=== PATIENT | female | born 1990 | race Caucasian/White ===

== ENCOUNTER 2018-01-27 19:58 | Emergency (ER) | payer BC ==
[2018-01-27] MEDS ORDERED: ONDANSETRON 4 MG/2 ML VIAL IVP ONE (21:48)
[2018-01-27] MEDS ORDERED: PROPOFOL 200 MG/20 ML VIAL IVP ONE (21:55)
[2018-01-27] MEDS ORDERED: PROPOFOL 200 MG/20 ML VIAL ONE (21:55)
--- NOTE | 2018-01-27 22:03 | EDPHY ---
H & P Stated Complaint: R ankle inj @1900 Time Seen by Provider: 01/27/18 20:34 HPI/ROS: HPI CHIEF COMPLAINT: Right ankle injury HISTORY OF PRESENT ILLNESS: Very pleasant 27-year-old female, otherwise healthy with no significant medical history presents emergency room with right ankle deformity and pain after she was at the gym this evening. She was at the climbing gym she states she fell approximately 10 ft landing on her right ankle. She arrives to the emergency room with obvious deformity closed injury of her right ankle. She is neurovascularly intact good distal pulse good cap refill. She denies back pain, headache, neck pain, main complaint right ankle pain. Allergic to amoxicillin. Last meal was 11:00 a.m. This morning. Past Medical History: Denies medical history Past Surgical History: Denies surgical history Social History: Denies drugs alcohol tobacco. Family History: Noncontributory ROS REVIEW OF SYSTEMS: 10 Systems were reviewed and negative with the exception of the elements mentioned in the history of present illness. Exam Constitutional triage nursing summary reviewed, vital signs reviewed, awake/ alert. Eyes normal conjunctivae and sclera, EOMI, PERRLA. HENT normal inspection, atraumatic, moist mucus membranes, no epistaxis, neck supple/ no meningismus, no raccoon eyes. Respiratory clear to auscultation bilaterally, normal breath sounds, no respiratory distress, no wheezing. Cardiovascular rate normal, regular rhythm, no murmur, no edema, distal pulses normal. Gastrointestinal soft, non-tender, no rebound, no guarding, normal bowel sounds, no distension, no pulsatile mass. Genitourinary no CVA tenderness. Musculoskeletal: Right lower extremity is neurovascular intact good distal pulse, good cap refill, no evidence of compartment syndrome. There is an obvious deformity of the right ankle. The foot is inverted inwards. Swelling noted. No open wounds. Closed injury. no midline vertebral tenderness, full range of motion, no calf swelling, no tenderness of extremities, no meningismus, good pulses, neurovascularly intact. Skin pink, warm, & dry, no rash, skin atraumatic. Neurologic awake, alert and oriented x 3, AAOx3, moves all 4 extremities equally, motor intact, sensory intact, CN II-XII intact, normal cerebellar, normal vision, normal speech. Psychiatric normal mood/affect. Heme/Lymph/Immune no lymphadenopathy. Differential Diagnosis: Includes but is not limited to in a particular order ankle fracture, ankle fracture dislocation, distal tibia fracture, distal fibula fracture Medical Decision Making: Plan for this patient she has an obvious deformity on exam, x-rays of the foot, ankle, tib-fib pain control, IV establishment Re-evaluation: Patient's x-rays have been reviewed. This shows a by mouth ankle fracture with dislocation. Distal fibula fracture. Patient will need conscious sedation for closed reduction and splinting. Patient is being moved from ER room 22 to ER room for for conscious sedation. Patient consents to sedation and closed reduction. Procedure: Procedural sedation. Indication: Right ankle fracture dislocation. A pre-sedation evaluation was completed on the patient just prior to the procedure. Patient is an appropriate candidate for procedural sedation with ASA class 1 E. The risks of the sedation were discussed including but not limited to dysrhythmia, need for airway intervention or general anesthesia, disability, ; and verbal consent obtained. A timeout was observed and patient's identity confirmed. The patient was sedated with 120 mg propofol The patient was monitored with continuous pulse oximetry, capnography, and hall monitor. There were no complications and no significant hypoxemia. I remained at the bedside for the sedation. The total time I spent in the procedural sedation was 30 mins Patient tolerated constipation very well. Post reduction x-ray reviewed. Post reduction x-ray reviewed. Good alignment. Patient is neurovascularly intact in the splint. 1243: Patient re-evaluated resting comfortably. On crutches. No compartment syndrome neurovascularly intact post splint placement. Source: Patient - Personal History LMP (Females 10-55): Now Current Tetanus/Diphtheria Vaccine: Unsure - Medical/Surgical History Hx Asthma: No Hx Chronic Respiratory Disease: No Hx Diabetes: No Hx Cardiac Disease: No Hx Renal Disease: No Hx Cirrhosis: No Hx Alcoholism: No Hx HIV/AIDS: No Hx Splenectomy or Spleen Trauma: No Other PMH: anxiety - Social History Smoking Status: Never smoked Constitutional: Initial Vital Signs Temperature (C) 36.3 C 01/27/18 19:59 Heart Rate 90 01/27/18 19:59 Respiratory Rate 18 01/27/18 19:59 Blood Pressure 139/80 H 01/27/18 19:59 O2 Sat (%) 97 01/27/18 19:59 O2 Delivery Mode [Post Room Air Procedure 1st] O2 Delivery Mode [Procedural Room Air 4th] O2 Delivery Mode [Procedural Non-Rebreather Mask 3rd] O2 Delivery Mode [Procedural Non-Rebreather Mask 2nd] O2 Delivery Mode [Procedural Non-Rebreather Mask 1st] O2 Delivery Mode [.Immediate Room Air Pre-Procedure Procedural 1st] O2 Delivery Mode Room Air O2 (L/minute) [Procedural 3rd] 10 O2 (L/minute) [Procedural 2nd] 10 O2 (L/minute) [Procedural 1st] 10 Allergies/Adverse Reactions: amoxicillin Allergy (Verified 01/27/18 20:01) Home Medications: Medication Instructions Recorded Zoloft 100mg (*) 01/27/18 Hydrocodone/APAP 5/325 [[place] 1 - 2 tab PO Q4H PRN #14 tab 01/28/18 5/325] Medical Decision Making - Diagnostics Imaging Results: Imaging Impressions Ankle X-Ray 01/27/18 20:05 Impression: Unstable displaced trimalleolar fracture of the right ankle. Foot X-Ray 01/27/18 20:58 Impression: 1. Unstable displaced trimalleolar fracture of the right ankle. 2. Misalignment of the calcaneus and cuboid and, therefore, subtle fracture in this region cannot be entirely excluded. 3. No definite fracture of the toes or metatarsals. Tibia/Fibula X-Ray 01/27/18 20:58 Impression: Unstable displaced trimalleolar fracture of the right ankle. Ankle X-Ray 01/27/18 22:17 Impression: Right ankle trimalleolar fracture with improved alignment status post cast placement. - Data Points Medications Given: Discontinued Medications Morphine Sulfate (Morphine) 2 mg IVP ONCE ONE Stop: 01/27/18 21:39 Last Admin: 01/27/18 21:47 Dose: 2 mg Ondansetron HCl (Zofran) 4 mg IVP EDNOW ONE Stop: 01/27/18 21:49 Last Admin: 01/27/18 21:51 Dose: 4 mg Propofol (Diprivan) 100 mg IVP EDNOW ONE Stop: 01/27/18 21:56 Last Admin: 01/27/18 22:09 Dose: 120 mg Departure - Departure Disposition: Home, Routine, Self-Care Clinical Impression: Ankle fracture, Ankle dislocation Condition: Good Instructions: Ankle Fracture (ED), Ankle Dislocation (ED) Additional Instructions: 1. Stay in your splint do not get wet. 2. Keep your leg elevated 3. Do not bear weight. 4. Follow up with Orthopedics 5. Return emergency room if you have worsening pain swelling questions or concerns. Referrals: Sussy Moran MD [Primary Care Provider] - As per Instructions Anshul Hagan MD [Medical Doctor] - As per Instructions Prescriptions: Hydrocodone/APAP 5/325 [[place] 5/325] 1 - 2 tab PO Q4H PRN #14 tab PRN Reason: Pain, Moderate
[2018-01-28] MEDS ORDERED: HYDROCOD/APAP 5/325 PREPACK#6 BTL TAKEHOME ONE (00:43)
[2018-01-28 00:55] VITALS: BP 108/64
== END 2018-01-28 00:54 | disposition home or self-care (01) ==
PROC: 0QSJXZZ Reposition Right Fibula, External Approach (ICD-10-PCS; principal; 2018-01-27)
DX: S82.851A Displaced trimalleolar fracture of right lower leg, initial encounter for closed fracture (principal); S93.04XA Dislocation of right ankle joint, initial encounter; W17.89XA Other fall from one level to another, initial encounter; Y93.31 Activity, mountain climbing, rock climbing and wall climbing
CPT/HCPCS: 96374; J2270; J2405; J2704